=== PATIENT | female | born 1970 | race Caucasian/White ===

== ENCOUNTER → 2018-03-08 | Outpatient (CLI) | payer BC, OTHER ==
[2018-03-08 08:37] LABS: FREE T4 1.04 NG/DL (0.76-1.46)
== END ==
LOC: M LAB 07:30
DX: E03.9 Hypothyroidism, unspecified (principal)
CPT/HCPCS: 84443

== ENCOUNTER → 2020-01-25 | Outpatient (CLI) | payer SELFPAY | LOC: M LABSMTC 13:52 | PROVIDERS: ATTEND Pediatrics | DX: Z11.59 Encounter for screening for other viral diseases (principal) ==

== ENCOUNTER → 2020-02-08 | Outpatient (CLI) | payer SELFPAY | LOC: M LABSMTC 12:58 | PROVIDERS: ATTEND Pediatrics | DX: Z20.828 Contact with and (suspected) exposure to other viral communicable diseases (principal) ==

== ENCOUNTER → 2020-02-22 | Outpatient (CLI) | payer SELFPAY | LOC: M LABSMTC 12:15 | PROVIDERS: ATTEND Pediatrics | DX: Z20.828 Contact with and (suspected) exposure to other viral communicable diseases (principal) ==

== ENCOUNTER → 2020-03-06 | Outpatient (CLI) | payer SELFPAY | LOC: M LABSMTC 12:49 | PROVIDERS: ATTEND Pediatrics | DX: Z20.828 Contact with and (suspected) exposure to other viral communicable diseases (principal) ==

== ENCOUNTER → 2020-03-14 | Outpatient (CLI) | payer SELFPAY | LOC: M LABSMTC 09:50 | PROVIDERS: ATTEND Pediatrics | DX: Z11.59 Encounter for screening for other viral diseases (principal) ==

== ENCOUNTER → 2024-03-15 | Outpatient (REF) | LOC: M EMP 12:55 | PROVIDERS: ATTEND Family Medicine | DX: Z20.822 Contact with and (suspected) exposure to COVID-19 (principal) ==

== ENCOUNTER → 2024-03-16 | Outpatient (REF) | LOC: M EMP 08:17 | PROVIDERS: ATTEND Family Medicine | DX: Z11.52 Encounter for screening for COVID-19 (principal) ==